=== PATIENT | female | born 1990 | race African-American/Black ===

== ENCOUNTER 2022-03-05 18:24 | Emergency (ER) | payer OTHER, SELFPAY ==
[2022-03-05 18:33] VITALS: BP 128/74; PULSE 83; RESP 16; TEMP 36.8; O2SAT 100
--- NOTE | 2022-03-05 19:24 | ED.URI ---
HPI - URI/Sore Throat General Chief Complaint: Upper Respiratory Infection Stated Complaint: chest tight fatigue aches Source: patient Mode of arrival: ambulatory Limitations: no limitations History of Present Illness HPI Narrative: 32-year-old female presents to [facility] with complaints of 4 day history of body aches, chills, headache, cough, sore throat, runny nose and nasal congestion. Patient has been taking [id number] [place], TheraFlu and Tylenol with minimal relief. Patient denies sick contacts. Patient denies recent trauma. Patient is nonsmoker. MD elicited complaint: fever, cough, sore throat, rhinorrhea and nasal congestion Onset (ago): day(s) (4) Able to tolerate fluids by mouth: Yes Exacerbating factors: swallowing Treatments prior to arrival: acetaminophen Related Data Allergies Allergy/AdvReac Type Severity Reaction Status Date / Time No Known Allergies Allergy Verified 03/05/22 18:51 Review of Systems Constitutional: Constitutional: Reports chills, Reports fatigue, Reports fever(s) and Denies weakness ENT: Denies vertigo, Denies dizziness, Reports nasal congestion and Reports sore throat Respiratory: Respiratory: Reports cough, Denies dyspnea and Denies wheezing Gastrointestinal: Gastrointestinal: Denies diarrhea, Denies nausea and Denies vomiting Integumentary/Breasts: Skin/Breast: Denies rash Neurologic: Denies vertigo and Denies dizziness Allergic/Immunologic: Allergic/Immunologic: Denies lip swelling, Denies throat swelling, Denies tongue swelling and Denies wheezing PMFSH Comments At time of signature, I agree with nursing past medical, surgical, social and family history. There is no relevant family history pertinent to the presenting complaint. Exam Const: General: no acute distress, alert, confusion and ill appearing Nutritional Appearance: well nourished Orientation/consciousness: patient oriented x3 Limitations: no limitations HENMT: Head: normal to inspection Ears: external ears normal and TM's normal bilaterally Face/Nose/Sinus: Normal external nose present and Normal nares present Teeth and gingiva: dentition normal Throat: posterior oropharynx normal and uvula midline Other: Moderate erythema noted to posterior pharynx. 1 to 2+ swelling noted to bilateral tonsils Eyes: Conjunctivae: conjunctivae normal Neck: Neck: normal visual inspection Resp: Effort & Inspection: normal respiratory effort and not labored Auscultation: clear to auscultation bilaterally, no crackles, no rales and no rhonchi Cardio: Rate: regular rate Rhythm: regular rhythm Heart sounds: no murmurs Skin: General skin exam: normal color Rashes: no rashes Wounds: no wounds Neuro: General: patient oriented x3 Speech: normal speech Gait exam (Neuro): Normal gait present Psych: Affect: normal affect Attitude: cooperative Course Course Level of Care: [facility] Visit Vital Signs Vital signs: Vital Signs Temperature 36.8 C 03/05/22 18:33 Pulse Rate 83 03/05/22 18:33 Respiratory Rate 16 03/05/22 18:33 Blood Pressure 128/74 03/05/22 18:33 Pulse Oximetry 100 03/05/22 18:33 Oxygen Delivery Room Air 03/05/22 18:33 Temperature 36.8 C 03/05/22 18:33 Pulse Rate 83 03/05/22 18:33 Respiratory Rate 16 03/05/22 18:33 Blood Pressure 128/74 03/05/22 18:33 Pulse Oximetry 100 03/05/22 18:33 Oxygen Delivery Room Air 03/05/22 18:33 MDM - URI/Sore Throat MDM Narrative Medical decision making narrative: Discussed negative COVID and influenza results with patient. There are no available strep tests at [facility] currently. Patient agrees to take medications as prescribed. Work excuse provided for patient. Patient agrees to proceed to the emergency room if symptoms worsen Differential Diagnosis Differential diagnosis: Likely upper respiratory infection, otitis media and sinusitis Lab Data Labs: Influenza A Screen Negative
== END 2022-03-05 19:34 | disposition home or self-care (01) ==
PROVIDERS: Emergency Provider Nurse Practitioner Family; PCP Emergency Medicine
DX: J02.9 Acute pharyngitis, unspecified (principal); J06.9 Acute upper respiratory infection, unspecified; Z20.822 Contact with and (suspected) exposure to COVID-19
CPT/HCPCS: 87426; 87804; 99213; C9803; G0463